=== PATIENT | male | born 1955 | race Caucasian/White ===

== ENCOUNTER 2017-12-19 16:26 | Emergency (ER) | payer OTHER ==
[~2017-12-19] VITALS: Ht 182.9 cm; Wt 108.9 kg
[2017-12-19] MEDS ORDERED: NORVASC5 MG (16:58)
[2017-12-19] MEDS ORDERED: COZAAR100 MG (16:58)
== END 2017-12-20 05:38 | disposition home or self-care (01) ==
LOC: ER 16:26
DX: K52.9 Noninfective gastroenteritis and colitis, unspecified (principal); I10 Essential (primary) hypertension